=== PATIENT | male | born 1995 | race Caucasian/White ===

== ENCOUNTER 2022-08-18 12:57 | Emergency (ER) | payer OTHER ==
[~2022-08-18] VITALS: Ht 185.4 cm; Wt 86.4 kg
[2022-08-18 13:17] VITALS: TEMP 98.3
[2022-08-18] MEDS ORDERED: KETOROLAC 60MG 2ML VIAL IM ONE (16:15)
[2022-08-18] MEDS ORDERED: LIDOCAINE 5% (LIDODERM) PATCH TD ONE (16:15)
[2022-08-18] MEDS ORDERED: diazePAM 5MG TABLET PO ONE (16:15)
[2022-08-18] MEDS ORDERED: methocarbamoL 750 MG TAB PO ONE (16:15)
[2022-08-18] MEDS ORDERED: MORPHINE 4 MG/ML 1ML VIAL IV ONE (18:00)
[2022-08-18 18:57] LABS: BASO % 0.6 % (0.0-1.0); EOS % 0.4 % (0.0-3.0); HEMATOCRIT 43.4 % (42.0-52.0); HEMOGLOBIN 14.7 g/dl (13.5-17.5); LYMPH # 1.2 10^3/uL (1.5-5.0); LYMPH % 24.9 % (24.0-44.0); MEAN CORPUSCULAR HEMOGLOBIN 29.8 pg (27.0-33.0); MEAN CORPUSCULAR HGB CONC 33.9 g/dl (32.0-36.5); MONO # 0.6 10^3/uL (0.0-0.8); MONO % 11.9 % (2.0-8.0); NEUTROPHILS # 3.1 10^3/uL (1.5-8.5); PLATELET COUNT, AUTOMATED 155 10^3/uL (150-450); RED BLOOD COUNT 4.93 10^6/uL (4.30-6.10); WHITE BLOOD COUNT 4.9 10^3/uL (4.0-10.0)
[2022-08-18] MEDS ORDERED: LIDO5DIS41 TD (22:05)
[2022-08-18] MEDS ORDERED: KETO10TAB PO (22:05)
[2022-08-18] MEDS ORDERED: CYCL-707 PO (22:05)
[2022-08-18 22:25] VITALS: BP 160/80
[2022-08-18] MEDS ORDERED: NORCO, ANEXSIA 5/325MG TABLET (HYDROcodone/ACETAMINOPHEN) PO ONE (22:30)
[2022-08-18 22:33] VITALS: O2SAT 100
== END 2022-08-18 22:35 | disposition home or self-care (01) ==
LOC: M ED 12:57
DX: S33.5XXA Sprain of ligaments of lumbar spine, initial encounter (principal); X50.0XXA Overexertion from strenuous movement or load, initial encounter; Y92.89 Other specified places as the place of occurrence of the external cause; Y93.B3 Activity, free weights; Y99.1 Military activity; F17.200 Nicotine dependence, unspecified, uncomplicated; Z88.0 Allergy status to penicillin
CPT/HCPCS: 72131; 72148; 80047; 85025; 87635; 96372; 96374; 99284; J1885

== ENCOUNTER 2023-01-02 19:04 | Emergency (ER) | payer OTHER ==
[~2023-01-02] VITALS: Ht 185.4 cm; Wt 84.1 kg
[~2023-01-02 19:04] MED LIST: CYCL-707 PO; KETO10TAB PO; LIDO5DIS41 TD
[2023-01-02 19:05] VITALS: BP 140/96; TEMP 97.9; O2SAT 100
[2023-01-03] MEDS ORDERED: LIDO5DIS41 TD (09:37)
[2023-01-03] MEDS ORDERED: IBUP-1022 PO (09:37)
[2023-01-03] MEDS ORDERED: METH-1164 PO (09:37)
== END 2023-01-02 21:33 | disposition left against medical advice (07) ==
LOC: M ED 19:04
DX: Z53.21 Procedure and treatment not carried out due to patient leaving prior to being seen by health care provider (principal)

== ENCOUNTER 2023-01-03 06:42 | Emergency (ER) | payer OTHER ==
[~2023-01-03] VITALS: Ht 185.4 cm; Wt 84.2 kg
[2023-01-03] MEDS ORDERED: diazePAM 5MG TABLET PO ONE (08:15)
[2023-01-03] MEDS ORDERED: LIDOCAINE 5% (LIDODERM) PATCH TD ONE (08:15)
[2023-01-03] MEDS ORDERED: KETOROLAC 30 MG/ML 1ML VIAL IM ONE (08:15)
[2023-01-03] MEDS ORDERED: METH-1164 PO (09:37)
[2023-01-03] MEDS ORDERED: LIDO5DIS41 TD (09:37)
[2023-01-03] MEDS ORDERED: IBUP-1022 PO (09:37)
[2023-01-03 09:45] VITALS: BP 137/65; TEMP 99; O2SAT 97
== END 2023-01-03 10:05 | disposition home or self-care (01) ==
LOC: M ED 06:42
DX: M54.50 Low back pain, unspecified (principal); G89.29 Other chronic pain; M51.37 Other intervertebral disc degeneration, lumbosacral region; F17.200 Nicotine dependence, unspecified, uncomplicated; Z88.0 Allergy status to penicillin
CPT/HCPCS: 96372; 99283; J1885

== ENCOUNTER → 2023-08-09 | Outpatient (REF) ==
[~2023-08-09] MED LIST changes: +IBUP-1022 PO; +METH-1164 PO
== END ==
LOC: M PLAIMG 10:30
PROVIDERS: ATTEND Nurse Practitioner Family
DX: M25.512 Pain in left shoulder (principal); M25.561 Pain in right knee